=== PATIENT | female | born 1965 | race Caucasian/White ===

== ENCOUNTER 2022-07-12 07:58 | Day surgery (SDC) | payer OTHER, SELFPAY ==
[2022-07-06 15:09] VITALS: BMI 44.9
--- NOTE | 2022-07-11 10:54 | HO.ANESPROP2 ---
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 If so, by whom?: No Are you DNR?: No Advance Directives: No Advance Directives Information Provided: Yes Advance Directives on File: No Recently lost weight without trying: No Meds Allergies Allergy/AdvReac Type Severity Reaction Status Date / Time codeine AdvReac Severe Nausea and Verified 07/06/22 15:05 Vomiting Home Medications Medication Instructions Recorded Confirmed Last Taken Type atorvastatin 10 mg tablet 1 tab PO DAILY 07/06/22 07/06/22 Unknown History ergocalciferol (vitamin D2) 1,250 1,250 mcg PO QWEEK 07/06/22 07/06/22 Unknown History mcg (50,000 unit) capsule Exam Exam Date and Time: July 11, 2022 1054 Height,Weight and Vital Signs: Height 5 ft 2 in Weight 111.584 kg Assessment and Plan Assessment Anesthesia Assessment: Chart Reviewed Documented by User: Lauren Peguero MD 07/12/22 11:33 [facility] Active Problems Active Problems: Increased BMI-45 Denies LEONIDES Past Medical History Medical History Hyperlipidemia Low back pain Postoperative nausea Family History Family history of problems with anesthesia: No Surgical History Surgical History Hx of bilateral cataract extraction Hx of section Hx of cholecystectomy Hx of eye surgery History of Problems with Anesthesia: Yes (Hypotension, N&V with Epidurals, spinal. Slept for a whole day after Gallbladder surgery. 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 If so, by whom?: No Are you DNR?: No Advance Directives: No Advance Directives Information Provided: Yes Advance Directives on File: No Recently lost weight without trying: No Meds Allergies Allergy/AdvReac Type Severity Reaction Status Date / Time codeine AdvReac Severe Nausea and Verified 07/06/22 15:05 Vomiting Home Medications Medication Instructions Recorded Confirmed Last Taken Type atorvastatin 10 mg tablet 1 tab PO DAILY 07/06/22 07/06/22 Unknown History ergocalciferol (vitamin D2) 1,250 1,250 mcg PO QWEEK 07/06/22 07/06/22 Unknown History mcg (50,000 unit) capsule Exam Height,Weight and Vital Signs: Height 5 ft 2 in Weight 111.584 kg Vital Signs Temp Pulse Resp BP Pulse Ox O2 Del Method 07/12/22 09:38 97.4 F 81 18 142/84 H 99 Room Air Airway Mallampati Class: III TM Dist: >3cm Neck ROM: Full Loose/Missing/Broken Teeth: No (Denies broken or loose teeth) Heart: RRR Lungs: CTAB Assessment and Plan Assessment Anesthesia Assessment: Anesthesia Plan Discussed Final Anesthetic Review Family History of Problems with Anesthesia: No History of Problems with Anesthesia: Yes (Hypotension, N&V with Epidurals, spinal. Slept for a whole day after Gallbladder surgery. Very sensitive to medication) NPO: Yes ASA Class: III Final Preanesthetic Review: No Changes in Pt Med Stat, Meds/Allgs Chart Reviewed, Consent Obtained/Reviewed and Anes Risks/Benef Reviewed Patient Risk: Intermediate Procedure Risk: Low Assessment/Block/Sedation in SS: Assess/Block/Sedation-SS Anesthetic Plan Anesthetic Plan: GA Disposition: Standard PACU
[2022-07-12] VITALS (12 sets, daily range): BP systolic 110–142; BP diastolic 61–86; PULSE 72–87; RESP 12–18; TEMP 36.1–36.3; O2SAT 94–99
[2022-07-12] MEDS: Lactated Ringers 1,000 ML 100 ML IVCONT (09:39)
[2022-07-12] MEDS: ondansetron HCL 4 MG/2 ML VIAL IVPUSH (11:59)
--- NOTE | 2022-07-12 13:07 | HO.OPHTHAL ---
Ophthalmology Operative Note Date of Service: 07/12/22 Narrative: Diagnoses 1. Exotropia 2. Left hypertropia. Procedures 1. Recession of right lateral rectus muscle 5 mm 2. Advancement of right medial rectus muscle 4 mm 3. Inferior transposition of both muscles 1/[address] Ernst anesthesia general complications none. The patient was brought to the operating room placed under general anesthesia. The patient's eyes were prepped and draped in the usual sterile ophthalmic fashion. A lid speculum was placed in the right eye and a peritomy was created around the medial rectus muscle. Extensive scar tissue was dissected free from the medial rectus muscle where was found to be approximately 10 mm behind the surgical limbus. A limbal peritomy was then created around the lateral rectus muscle and again extensive star scar tissue was dissected free. The muscle was found to be approximately 6 mm behind the surgical limbus. The lateral rectus muscle was then hooked and secured with a double-armed Vicryl suture. It was disinserted from the globe and reattached to position 5 mm posterior and half a tendon width inferior to its original insertion using the Vicryl suture. Conjunctiva was closed with interrupted Vicryl sutures. The medial rectus muscle was then hooked and secured with a double-armed Vicryl suture. It was disinserted from the globe and advanced to a position approximately 6 mm behind the surgical limbus and transposed inferiorly 1/2 tendon width. Conjunctiva was closed with interrupted Vicryl sutures. The patient was then awoken from general anesthesia and discharged to postoperative recovery in good condition.
[2022-07-12] MEDS: Acetaminophen 325 MG TABLET 650 MG PO (15:09)
== END 2022-07-12 15:29 | disposition home or self-care (01) ==
PROVIDERS: PCP Hospitalist; Visit Provider Ophthalmology
PROC: (CPT 67312; principal; 2022-07-12 09:50)
DX: H50.10 Unspecified exotropia (principal); H50.22 Vertical strabismus, left eye; E78.2 Mixed hyperlipidemia; E55.9 Vitamin D deficiency, unspecified; Z79.899 Other long term (current) drug therapy; Z88.5 Allergy status to narcotic agent
CPT/HCPCS: 67312; 67332; 67320; J1100; J2250; J2405; J2550; J3010